=== PATIENT | female | born 1980 | race Asian ===

== ENCOUNTER 2023-08-22 12:26 | Emergency (ER) | payer OTHER, SELFPAY ==
[2023-08-22 12:31] VITALS: BP 115/82
[2023-08-22 13:02] LABS: % Basophils 0.4 % (0-2); % Eosinophils 0.9 % (0-6); % Immature Granulocytes 0.3 % (0-0.5); % Lymphocytes 30.3 % (20.5-51.1); % Neutrophils 60.1 % (42.2-75.2); Absolute Eosinophils 0.1 10^3/uL (0-0.7); Absolute Lymphocytes 2.8 10^3/uL (1.2-3.4); Absolute Monocytes 0.8 10^3/uL (0.1-0.6); Absolute Neutrophils 5.6 10^3/uL (1.4-6.5); Hematocrit 38.2 % (37.0-47.0); Hemoglobin 13.4 g/dL (12.0-16.0); Mean Corp Hgb Conc. 35.1 g/dL (33.0-37.0); Mean Corpuscular Hgb 29.7 pg (27.0-31.0); Mean Corpuscular Volume 84.7 fL (81.0-99.0); Mean Platelet Volume 9.8 fL (7.4-10.4); Nucleated Red Blood Cells % 0 %; Platelet Count 316 10^3/uL (130-400); Red Blood Cell Count 4.51 10^6/uL (4.20-5.40); Red Cell Dist. Width 12.2 % (11.5-14.5); White Blood Cell Count 9.4 10^3/uL (4.8-10.8)
[2023-08-22 13:12] LABS: HCG, Serum Qualitative Screen Negative
[2023-08-22 13:15] LABS: ALT (SGPT) 15 U/L (0-35); AST (SGOT) 20 U/L (14-36); Albumin 4.5 g/dl (3.5-5.0); Alkaline Phosphatase 75 U/L (38-126); Blood Urea Nitrogen 14 mg/dl (7-17); Calcium 9.9 mg/dl (8.4-10.2); Carbon Dioxide 27 mmol/L (22-30); Chloride 105 mmol/L (98-107); Glucose 108 mg/dl (70-99); Potassium 4.4 mmol/L (3.5-5.1); Sodium 140 mmol/L (135-145); Total Bilirubin 0.5 mg/dl (0.2-1.3); Total Protein 7.6 g/dl (6.3-8.2); eGFR > 60.00
[2023-08-22 13:27] LABS: Troponin I < 0.012 ng/ml
[2023-08-22 14:00] VITALS: BP 112/66
--- NOTE | 2023-08-22 14:14 | ED.GENMED ---
History of Present Illness
General
Chief Complaint: Chest Pain
Source: patient
Time Seen by Provider: 08/22/23 14:05
History of Present Illness
History of Present Illness:
43-year-old female presents to the emergency room complaining of pain located in her left chest and upper back. Symptoms have been present for some time. She also noted which she feels like some fullness in her left neck. No cough. No fever or
chills. Patient experiencing anterior chest pain earlier this morning which is the thing that prompted her to come to the emergency room. Patient denies taking any prescription medications. She denies any diagnosed medical history.
Past History
Past History
ED Past Medical History: Other (Back pain from Herniated disc,Migraines)
ED Past Surgical History: None
Social History
Tobacco: Non-smoker
Alcohol: None
Drug: None
Personal:
Living: with family
Phy Exam
Physical Exam
Physical Exam:
General: Awake, Alert, Oriented X3. No acute distress.
Vitals: unremarkable
Head: Atraumatic
Eyes: Pupils equal, EOMI
Throat: Airway intact, no exudates
Neck: Trachea midline, no masses palpated in the area of concern
Lungs: Clear and equal b/l
Heart: Regular rate, no murmurs
Abd: Soft, Nontender, No pulsatile mass
Neuro: Nonfocal
Skin: Warm, dry, no rash
Extremities: pulses equal b/l, no edema
Lymphatic: I do not palpate any abnormal lymph glands in the neck, clavicular, axillary region
Scores
Heart Score for Chest Pain Patients
STEMI patient?: No
History: Slightly or Non-Suspicious
ECG: Normal
Age: </= 45 years
Risk Factors: No Risk Factors
Troponin: </= Normal Limit
Heart Score for Chest Pain Patients: 0
Heart Score Risk: 2.5% MACE over next 6 weeks
Course
Orders/Labs/Results
Orders:
Orders
08/22/23 12:35
Electrocardiogram (*1) Urgent
Reason for Study: Chest Pain
EKG- Treatment ONCE
Test Result ONCE
08/22/23 12:40
Complete Blood Count/With Diff Urgent
Comprehensive Metabolic Panel Urgent
HCG, Serum Qualitative Screen Urgent
Troponin I Urgent
08/22/23 14:12
CR Chest - 2 Views Urgent
Comment:
Reason For Exam: chest pain
Abnormal Lab Results
08/22/23
12:40
Absolute Monos (auto) 0.8 H 10^3/uL
(0.1-0.6)
Glucose 108 H mg/dl
(70-99)
08/22/23 12:40
08/22/23 12:40
Vital Signs
Initial and Last Documented VS:
Initial Vital Signs
Temp Pulse Resp BP Pulse Ox
98 F 96 18 115/82 99
08/22/23 12:31 08/22/23 12:31 08/22/23 12:31 08/22/23 12:31 08/22/23 12:31
Last Documented Vital Signs
Temp Pulse Resp BP Pulse Ox
98.5 F 86 16 136/75 98
08/22/23 15:27 08/22/23 15:27 08/22/23 15:27 08/22/23 15:27 08/22/23 15:27
MDM/Problems Addressed
Differential Diagnosis Includes:
Chest wall pain, pneumothorax, muscle strain
MDM/Problems Addressed:
Patient presents with nonspecific chest discomfort. Labs including troponin are normal. EKG is normal.
*EKG
Interpreted by ED Provider?: Yes
Interpretation: normal
Heart Rate: 78
Rate: normal
Rhythm: sinus
[place]: normal axis
Interval: normal interval
QRS Pattern: normal QRS
Ischemia: no ischemia
*Teacher Associate Interpretation
Rate: normal
Interpretation: normal
Rhythm: sinus
*Critical Care Note
Total Time (30-74mins, 75-104mins- exclusive of procedures): Not Applicable
ED Attending Note
-
Portions of this chart may have been created with voice recognition software.� Occasional wrong word or��sound alike� substitutions may have occurred due to the inherent limitations of voice recognition software.
Discharge Plan
Departure
Patient Disposition: Home (Routine Discharge)
Date of Disposition: 08/22/23
Time of Disposition: 15:16
Patient with high blood pressure during this ER visit?: No
Condition: Good
Discharge Problem:
Chest pain
Instructions: Chest Pain PCP Follow Up
Prescriptions:
No Action
No Current Medications
0
Activity Restrictions/Additional Instructions:
Please follow-up with your primary care provider.
Interventions
Interventions:
*Risk Screen - Suicide Last Done: 08/22/23 12:31
*General Assessment Last Done: 08/22/23 12:31
*Neglect/Abuse Screening Last Done: 08/22/23 12:31
ED- Fall Risk Assessment Last Done: 08/22/23 15:05
*ED COVID-19 Vaccine History Last Done: 08/22/23 15:05
*Nursing Disposition Last Done: 08/22/23 15:28
ED- Cardiac Assessment Last Done: 08/22/23 15:05
Discharge Date and Time
Discharge Date/Time: 08/22/23 15:28
Print Language: DIVEHI
[2023-08-22 15:05] VITALS: BMI 25.5
[2023-08-22 15:27] VITALS: BP 136/75
== END 2023-08-22 15:28 | disposition home or self-care (01) ==
LOC: EMR 12:26
PROVIDERS: Emergency Medicine; EMERGENCY PHYSICIAN Emergency Medicine
DX: R07.89 Other chest pain (principal); M54.6 Pain in thoracic spine; G43.909 Migraine, unspecified, not intractable, without status migrainosus; M51.25 Other intervertebral disc displacement, thoracolumbar region
CPT/HCPCS: 99283; 71046; 80053; 84484; 84703; 85025; 93005

== ENCOUNTER 2024-05-16 13:24 | Emergency (ER) | payer MEDICAID, SELFPAY ==
[2024-05-16 13:26] VITALS: BP 120/88
[2024-05-16 13:45] LABS: % Basophils 0.3 % (0-2); % Eosinophils 1.7 % (0-6); % Immature Granulocytes 0.5 % (0-0.5); % Monocytes 12.9 % (1.7-9.3); % Neutrophils 58.6 % (42.2-75.2); Absolute Eosinophils 0.1 10^3/uL (0-0.7); Absolute Lymphocytes 1.7 10^3/uL (1.2-3.4); Absolute Monocytes 0.8 10^3/uL (0.1-0.6); Absolute Neutrophils 3.8 10^3/uL (1.4-6.5); Hematocrit 37.8 % (37.0-47.0); Mean Corp Hgb Conc. 34.4 g/dL (33.0-37.0); Mean Corpuscular Hgb 29.5 pg (27.0-31.0); Mean Corpuscular Volume 85.7 fL (81.0-99.0); Mean Platelet Volume 9.8 fL (7.4-10.4); Nucleated Red Blood Cells % 0 %; Platelet Count 246 10^3/uL (130-400); Red Blood Cell Count 4.41 10^6/uL (4.20-5.40); Red Cell Dist. Width 12.2 % (11.5-14.5); White Blood Cell Count 6.5 10^3/uL (4.8-10.8)
[2024-05-16 13:58] LABS: COVID-19 Antigen Negative (Negative)
[2024-05-16 14:12] LABS: HCG, Serum Qualitative Screen Negative
[2024-05-16 14:13] LABS: ALT (SGPT) 15 U/L (0-35); AST (SGOT) 24 U/L (14-36); Albumin 4.2 g/dl (3.5-5.0); Alkaline Phosphatase 61 U/L (38-126); Blood Urea Nitrogen 11 mg/dl (7-17); Calcium 9.6 mg/dl (8.4-10.2); Carbon Dioxide 24 mmol/L (22-30); Chloride 106 mmol/L (98-107); Glucose 100 mg/dl (70-99); Potassium 4.7 mmol/L (3.5-5.1); Sodium 138 mmol/L (135-145); Total Bilirubin 0.5 mg/dl (0.2-1.3); Total Protein 7.5 g/dl (6.3-8.2); eGFR > 60.00
[2024-05-16] MEDS: DECADRON 10 MG IV (16:16)
[2024-05-16] MEDS: REGLAN 10 MG IV (16:17)
[2024-05-16] MEDS: BENADRYL 25 MG IV (16:17)
[2024-05-16] MEDS: TORADOL 15 MG IV (16:18)
[2024-05-16] MEDS: NSS 1000 IV (16:21)
[2024-05-16 16:25] VITALS: BP 139/78
[2024-05-16 16:26] VITALS: BMI 31.1
[2024-05-16 17:00] VITALS: BP 131/76
--- NOTE | 2024-05-16 17:33 | ED.GENMED ---
History of Present Illness
General
Chief Complaint: Cold/Flu/URI Symptoms
Source: patient
Exam Limitations: none
Time Seen by Provider: 05/16/24 15:51
Nursing documentation reviewed up to this point in time: agreed with
History of Present Illness
History of Present Illness:
44-year-old female presenting to the emergency department today for concerns of cough sore throat congestion headache over the past 3 days. Slightly worsened today ongoing cough moderate headache. Has had headaches that were similar in the past.
Not the worst of life. Not abrupt in onset.
Past History
Past History
ED Past Medical History: Other (Back pain from Herniated disc,Migraines)
ED Past Surgical History: None
Social History
Tobacco: Non-smoker
Alcohol: None
Drug: None
Personal:
Living: with family
Review of Systems
Review of Systems
Allergies reviewed?: Yes
All Other Systems: ROS reviewed and negative except as documented in HPI and ROS
Phy Exam
Physical Exam
Physical Exam:
GENERAL: Alert , in no apparent distress
EYE: pupils equal and reactive
NECK: Supple, no significant adenopathy.
ENT: Swollen boggy nasal turbinates, irritation inflammation of the posterior pharynx o/p clr, mmm.
CARDIAC: Regular rate and rhythm .
LUNGS: Clear breath sounds bilaterally, no acute respiratory distress, no wheezes/rales/rhonchi
ABDOMEN: Soft, without focal tenderness, no r/g, no cvat
NEUROLOGICAL: Alert and oriented, no focal neuro deficits
SKIN: Warm and dry, skin intact.
MUSCULOSKELETAL: No edema, well perfused.
PSYCH: Normal and appropriate interaction.
Course
Orders/Labs/Results
Orders:
Orders
05/16/24 13:29
Test Result ONCE
05/16/24 13:31
CBC/With Diff [Complete Blood Count/With Diff] Urgent
COVID-19 Antigen Urgent
Source: Nasal Swab
Comprehensive Metabolic Panel Urgent
HCG, Serum Qualitative Screen Urgent
Influenza A+B Rapid Molecular Urgent
MIKEY Source: Nasal Swab
Specimen Description:
05/16/24 16:04
Dexamethasone Sod Phosphate [Decadron] 10 mg IV NOW STA
Diphenhydramine [Benadryl] 25 mg IV NOW STA
Ketorolac [Toradol] 15 mg IV NOW STA
Metoclopramide [Reglan] 10 mg IV NOW STA
Chest [CR Chest - 2 Views ] Urgent
Comment:
Reason For Exam: cough fever
05/16/24 16:21
0.9% Sodium Chloride 1000 ml [Nss] 1,000 ml IV BOLUS
Abnormal Lab Results
05/16/24
13:31
Absolute Monos (auto) 0.8 H 10^3/uL
(0.1-0.6)
Monocytes % 12.9 H %
(1.7-9.3)
Glucose 100 H mg/dl
(70-99)
05/16/24 13:31
05/16/24 13:31
Vital Signs
Initial and Last Documented VS:
Initial Vital Signs
Temp Pulse Resp BP Pulse Ox
98.3 F 93 16 120/88 98
05/16/24 13:26 05/16/24 13:26 05/16/24 13:26 05/16/24 13:26 05/16/24 13:26
Last Documented Vital Signs
Temp Pulse Resp BP Pulse Ox
98.3 F 78 17 116/58 98
05/16/24 13:26 05/16/24 19:00 05/16/24 19:00 05/16/24 19:00 05/16/24 19:00
MDM/Problems Addressed
MDM/Problems Addressed:
44-year-old female presenting to the emergency department with upper respiratory symptoms over the past 3 days. On arrival vital signs are normal patient no distress labs unremarkable. Symptoms seem consistent with likely viral syndrome with
associated headache. Patient given migraine cocktail with complete resolution of symptoms, stable for outpatient management return precautions given.
*Critical Care Note
Total Time (30-74mins, 75-104mins- exclusive of procedures): Not Applicable
ED Attending Note
-
Portions of this chart may have been created with voice recognition software.� Occasional wrong word or��sound alike� substitutions may have occurred due to the inherent limitations of voice recognition software.
Discharge Plan
Departure
Patient Disposition: Home (Routine Discharge)
Date of Disposition: 05/16/24
Time of Disposition: 19:14
Patient with high blood pressure during this ER visit?: No
Condition: Good
Covid-19: Not Applicable
Discharge Problem:
Acute viral syndrome
Instructions: Viral Syndrome (DC)
Prescriptions:
No Action
No Current Medications
0
Referrals:
UNKNOWN - PT DOES,NOT KNOW [Family Provider] -
Activity Restrictions/Additional Instructions:
You came to the emergency department today with concerns of symptoms consistent with a viral syndrome. Please take Motrin Tylenol over the next few days. Please feel close with your primary care doctor for ongoing symptoms. Return for any
worsening, new or concerning symptoms.
Interventions
Interventions:
*Risk Screen - Suicide Last Done: 05/16/24 13:26
*General Assessment Last Done: 05/16/24 16:21
*Neglect/Abuse Screening Last Done: 05/16/24 13:26
*ED- Fall Risk Assessment Last Done: 05/16/24 16:21
*ED COVID-19 Vaccine History Last Done: 05/16/24 16:21
ED- Pulmonary Assessment Last Done: 05/16/24 16:20
Discharge Date and Time
Print Language: LITHUANIAN
[2024-05-16 18:00] VITALS: BP 121/54
[2024-05-16 19:00] VITALS: BP 116/58
== END 2024-05-16 19:21 | disposition home or self-care (01) ==
LOC: EMR 13:24
PROVIDERS: Emergency Medicine; EMERGENCY PHYSICIAN Emergency Medicine
DX: B34.9 Viral infection, unspecified (principal)
CPT/HCPCS: 99283; 71046; 80053; 84703; 85025; 87502; 87811

== ENCOUNTER 2024-05-30 12:06 | Emergency (ER) | payer MEDICAID, SELFPAY ==
[2024-05-30 12:11] VITALS: BP 120/76
[2024-05-30 13:34] VITALS: BMI 29.2
[2024-05-30 13:44] VITALS: BP 107/68
[2024-05-30] MEDS: REGLAN 10 MG IV (13:50)
[2024-05-30] MEDS: NSS 1000 IV (13:51)
[2024-05-30] MEDS: BENADRYL 25 MG IV (13:51)
[2024-05-30] MEDS: TORADOL 15 MG IV (13:51)
--- NOTE | 2024-05-30 13:52 | ED.GENMED ---
History of Present Illness
<Eulogio Reeves PA-C - Last Filed: 05/30/24 15:20>
General
Chief Complaint: Headache
Source: patient
Exam Limitations: none
Time Seen by Provider: 05/30/24 13:36
History of Present Illness
History of Present Illness:
44-year-old female presents for evaluation of cough fatigue nausea vomiting headache tingling in hands. She was here 2 weeks ago for similar symptoms. She was also seen by the family doctor this week and was started on penicillin. She notes
nausea after eating. This is ongoing for couple months. Her cough has been ongoing for several weeks. She had an x-ray done 2 weeks ago which showed no acute finding.
Past History
<Eulogio Reeves PA-C - Last Filed: 05/30/24 15:20>
Past History
ED Past Medical History: Other (Back pain from Herniated disc,Migraines)
ED Past Surgical History: None
Social History
Tobacco: Non-smoker
Alcohol: None
Drug: None
Personal:
Living: with family
Phy Exam
<Eulogio Reeves PA-C - Last Filed: 05/30/24 15:20>
Physical Exam
Physical Exam:
General: Well-appearing nontoxic female no acute respiratory distress
HEENT: Normocephalic atraumatic
Heart: Regular rate and rhythm no murmurs
Lungs: Clear no wheeze
Abdomen is soft nontender nondistended no guarding rebound normal bowel sounds
Extremities: No cyanosis or edema
Skin: Warm no rash
Course
<Eulogio Reeves PA-C - Last Filed: 05/30/24 15:20>
Orders/Labs/Results
Orders:
Orders
05/30/24 13:44
0.9% Sodium Chloride 1000 ml [Nss] 1,000 ml IV BOLUS
Diphenhydramine [Benadryl] 25 mg IV NOW STA
Ketorolac [Toradol] 15 mg IV NOW STA
Metoclopramide [Reglan] 10 mg IV NOW STA
05/30/24 13:59
Complete Blood Count/With Diff Urgent
05/30/24 14:00
Comprehensive Metabolic Panel Urgent
Lipase Urgent
05/30/24 16:28
CT Head W/o Iv Contrast Urgent
Comment:
Reason For Exam: headache, nausea
Abnormal Lab Results
05/30/24 05/30/24
13:59 14:00
Hct 35.2 L %
(37.0-47.0)
Abs Immat Gran (auto) 0.1 H 10^3/uL
(0-0.05)
Absolute Neuts (auto) 8.3 H 10^3/uL
(1.4-6.5)
Immature Gran % 0.6 H %
(0-0.5)
Neutrophils % 78.4 H %
(42.2-75.2)
Lymphocytes % 14.6 L %
(20.5-51.1)
Glucose 109 H mg/dl
(70-99)
05/30/24 13:59
05/30/24 14:00
Vital Signs
Initial and Last Documented VS:
Initial Vital Signs
Temp Pulse Resp BP
36.7 C 65 16 120/76
05/30/24 12:11 05/30/24 12:11 05/30/24 12:11 05/30/24 12:11
Last Documented Vital Signs
Temp Pulse Resp BP Pulse Ox
36.7 C 75 16 105/64 99
05/30/24 12:11 05/30/24 15:30 05/30/24 15:30 05/30/24 15:00 05/30/24 15:30
<Parul Dutton PA-C - Last Filed: 05/30/24 17:22>
Orders/Labs/Results
Orders:
Orders
05/30/24 13:44
0.9% Sodium Chloride 1000 ml [Nss] 1,000 ml IV BOLUS
Diphenhydramine [Benadryl] 25 mg IV NOW STA
Ketorolac [Toradol] 15 mg IV NOW STA
Metoclopramide [Reglan] 10 mg IV NOW STA
05/30/24 13:59
Complete Blood Count/With Diff Urgent
05/30/24 14:00
Comprehensive Metabolic Panel Urgent
Lipase Urgent
05/30/24 16:28
CT Head W/o Iv Contrast Urgent
Comment:
Reason For Exam: headache, nausea
Abnormal Lab Results
05/30/24 05/30/24
13:59 14:00
Hct 35.2 L %
(37.0-47.0)
Abs Immat Gran (auto) 0.1 H 10^3/uL
(0-0.05)
Absolute Neuts (auto) 8.3 H 10^3/uL
(1.4-6.5)
Immature Gran % 0.6 H %
(0-0.5)
Neutrophils % 78.4 H %
(42.2-75.2)
Lymphocytes % 14.6 L %
(20.5-51.1)
Glucose 109 H mg/dl
(70-99)
05/30/24 13:59
05/30/24 14:00
Vital Signs
Initial and Last Documented VS:
Initial Vital Signs
Temp Pulse Resp BP
36.7 C 65 16 120/76
05/30/24 12:11 05/30/24 12:11 05/30/24 12:11 05/30/24 12:11
Last Documented Vital Signs
Temp Pulse Resp BP Pulse Ox
36.7 C 75 16 105/64 99
05/30/24 12:11 05/30/24 15:30 05/30/24 15:30 05/30/24 15:00 05/30/24 15:30
<Eulogio Reeves PA-C - Last Filed: 05/30/24 15:20>
MDM/Problems Addressed
Differential Diagnosis Includes:
Fatigue cough nausea vomiting headache with a multitude of other symptoms. Symptoms most consistent with viral syndrome. Reviewed recent x-ray which was negative for acute findings. She is currently on penicillin.
Will check basic labs hydrate and treat symptoms.
<Eulogio Reeves PA-C - Last Filed: 05/30/24 15:20>
*Critical Care Note
Total Time (30-74mins, 75-104mins- exclusive of procedures): Not Applicable
<Eulogio Reeves PA-C - Last Filed: 05/30/24 15:20>
Update Note
Update Note:
Patient feeling better after symptomatic treatment here suspect extension of underlying viral illness. Labs reviewed without significant finding. Stable for discharge
<Parul Dutton PA-C - Last Filed: 05/30/24 17:22>
Update Note
Update Note:
Patient feeling better after symptomatic treatment here suspect extension of underlying viral illness. Labs reviewed without significant finding. Stable for discharge
05/30/2024 1720 PM
I was called to the room after the patient was discharged by previous provider for headache which was sounding very similar to be migrainous or related to a viral syndrome
She was given a migraine cocktail and felt better. There was no red flag symptoms. Apparently according to Roshan who saw her earlier she was to be discharged when her fluids were done. She upon being discharged asked for a head CT. This is when
I became involved in the case. I did a medical screening exam and neurologic exam, she had no red flag symptoms of her headache, some nausea, mild photophobia, global headache, not thunderclap, was 9 out of 10 and much improved to 2 out of 10 now.
She has had these headaches off and on for days and has seen her family doctor and thought to have sinusitis so she is on penicillin. Patient was also seen here previously. She does slightly think that the headache is worse with standing but she
is having no vision changes to be consistent with pseudotumor.
I felt comfortable discharging her however she did request a head CT at this point would agree at the patient's request though I thought it was a low yield study. I do recommend she see a neurologist. While the patient was waiting for the head CT
she decided she did not wish to have it done because of the wait and so she would like to go home.
ED Attending Note
<Eulogio Reeves PA-C - Last Filed: 05/30/24 15:20>
-
Portions of this chart may have been created with voice recognition software.� Occasional wrong word or��sound alike� substitutions may have occurred due to the inherent limitations of voice recognition software.
Discharge Plan
Departure
Patient with high blood pressure during this ER visit?: No
Discharge Problem:
Headache
Instructions: Migraines (DC)
Prescriptions:
No Action
No Current Medications
0
Referrals:
UNKNOWN - PT DOES,NOT KNOW [Family Provider] -
Activity Restrictions/Additional Instructions:
Stay hydrated at home. Return here for worsening symptoms otherwise follow-up with your doctor
Interventions
Interventions:
*Risk Screen - Suicide Last Done: 05/30/24 12:11
*Neglect/Abuse Screening Last Done: 05/30/24 12:11
ED- Neurological Assessment Last Done: 05/30/24 13:34
Discharge Date and Time
Print Language: MALDIVIAN
[2024-05-30 14:00] VITALS: BP 109/72
[2024-05-30 14:11] LABS: % Basophils 0.4 % (0-2); % Eosinophils 0.7 % (0-6); % Immature Granulocytes 0.6 % (0-0.5); % Lymphocytes 14.6 % (20.5-51.1); % Monocytes 5.3 % (1.7-9.3); % Neutrophils 78.4 % (42.2-75.2); Absolute Eosinophils 0.1 10^3/uL (0-0.7); Absolute Immature Granulocytes 0.1 10^3/uL (0-0.05); Absolute Lymphocytes 1.5 10^3/uL (1.2-3.4); Absolute Monocytes 0.6 10^3/uL (0.1-0.6); Absolute Neutrophils 8.3 10^3/uL (1.4-6.5); Hematocrit 35.2 % (37.0-47.0); Hemoglobin 12.2 g/dL (12.0-16.0); Mean Corp Hgb Conc. 34.7 g/dL (33.0-37.0); Mean Corpuscular Volume 83.8 fL (81.0-99.0); Mean Platelet Volume 9.3 fL (7.4-10.4); Nucleated Red Blood Cells % 0 %; Platelet Count 308 10^3/uL (130-400); Red Cell Dist. Width 11.9 % (11.5-14.5); White Blood Cell Count 10.6 10^3/uL (4.8-10.8)
[2024-05-30 14:21] LABS: ALT (SGPT) 15 U/L (0-35); AST (SGOT) 20 U/L (14-36); Albumin 3.9 g/dl (3.5-5.0); Alkaline Phosphatase 70 U/L (38-126); Blood Urea Nitrogen 11 mg/dl (7-17); Calcium 9.5 mg/dl (8.4-10.2); Carbon Dioxide 26 mmol/L (22-30); Chloride 107 mmol/L (98-107); Estimated Creatinine Clearance > 125 ml/min; Glucose 109 mg/dl (70-99); Lipase 125 U/L (23-300); Potassium 4.9 mmol/L (3.5-5.1); Sodium 138 mmol/L (135-145); Total Bilirubin 0.6 mg/dl (0.2-1.3); Total Protein 6.9 g/dl (6.3-8.2); eGFR > 60.00
[2024-05-30 15:00] VITALS: BP 105/64
== END 2024-05-30 17:56 | disposition home or self-care (01) ==
LOC: EMR 12:06
PROVIDERS: Physician Assistant; EMERGENCY PHYSICIAN Emergency Medicine
DX: R51.9 Headache, unspecified (principal); R11.0 Nausea
CPT/HCPCS: 96374; 96375; 96361; 99284; 80053; 83690; 85025